=== PATIENT | female | born 1975 | race African-American/Black ===

== ENCOUNTER 2016-10-23 19:22 | Emergency (ER) | payer OTHER ==
[~2016-10-23] VITALS: Ht 162.6 cm; Wt 63.5 kg
[~2016-10-23 19:22] MED LIST: AMOXICILLIN; CLIN150C16 PO; DIAZ5TAB4 PO; FOLI1TAB16 PO; LEVO75TA PO; OXYC5CAP18 PO; SPIR50TA PO
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
[2016-10-23] MEDS ORDERED: ONDANSETRON 4 MG/2 ML VIAL IV ONE (20:15)
[2016-10-23] MEDS ORDERED: HYDROMORPHONE 1 MG/1 ML DISP.SYRIN IV ONE ×2 (20:15→21:30)
[2016-10-23 20:58] LABS: BASOPHILS # (AUTO) 0.1 K/uL (0.0-8.0); BASOPHILS % (AUTO) 1.3 % (0.0-2.0); EOSINOPHILS # (AUTO) 0.4 K/uL (0.0-0.7); EOSINOPHILS % (AUTO) 7.5 % (0.0-7.0); HEMATOCRIT 37.5 % (37-47); HEMOGLOBIN 11.8 G/DL (12.0-16.0); LYMPHOCYTES # (AUTO) 1.4 K/UL (0.8-4.8); LYMPHOCYTES % (AUTO) 27.6 % (20.5-51.5); MEAN CORPUSCULAR HEMOGLOBIN 24.9 UUG (27.0-31.0); MEAN CORPUSCULAR HGB CONC 32 g/dL (32.0-37.0); MEAN CORPUSCULAR VOLUME 78.9 FL (81.0-99.0); MONOCYTES # (AUTO) 0.5 K/UL (0.1-1.30); MONOCYTES % (AUTO) 10.2 % (0.0-11.0); NEUTROPHILS # (AUTO) 2.8 K/UL (1.8-8.9); NEUTROPHILS % (AUTO) 53.4 % (38.5-71.5); PLATELET COUNT (AUTO) 237 K/UL (150-450); RED BLOOD CELL COUNT(AUTO) 4.75 MIL/UL (4.2-5.4); WHITE BLOOD COUNT (AUTO) 5.2 K/UL (4.0-11.2)
[2016-10-23] MEDS ORDERED: ONDANSETRON 4 MG/2 ML VIAL ONE (20:59)
[2016-10-23] MEDS ORDERED: HYDROMORPHONE 2 MG/1 ML DISP.SYRIN ONE ×2 (20:59→22:03)
[2016-10-23 21:00] LABS: CREATININE 0.7 mg/dL (0.6-1.3); POTASSIUM 4.1 mmol/L (3.5-5.1)
[2016-10-23 21:06] LABS: BILIRUBIN,DIRECT 0.1 mg/dL (0.0-0.2); BILIRUBIN,TOTAL 0.2 mg/dL (0.2-1.0)
--- NOTE | 2016-10-23 21:47 | NUR ---
Pt back from [place].
[2016-10-23] MEDS ORDERED: IV NORMAL SALINE 1000 ML BAG IV ONE (22:45)
--- NOTE | 2016-10-23 23:08 | NUR ---
Removed IV intact, site okay, bandaged. Gave pt RX and d/c instructions, verbalized understanding. Pt calling [facility] for transport home.
== END 2016-10-23 23:11 | disposition home or self-care (01) ==
LOC: ER 19:23
DX: S39.012A Strain of muscle, fascia and tendon of lower back, initial encounter (principal); S16.1XXA Strain of muscle, fascia and tendon at neck level, initial encounter; R07.9 Chest pain, unspecified; E03.9 Hypothyroidism, unspecified; Z87.442 Personal history of urinary calculi; Z88.1 Allergy status to other antibiotic agents; Z88.6 Allergy status to analgesic agent; Z91.040 Latex allergy status; Z90.49 Acquired absence of other specified parts of digestive tract; G40.909 Epilepsy, unspecified, not intractable, without status epilepticus; W22.03XA Walked into furniture, initial encounter; Y93.89 Activity, other specified; Y92.9 Unspecified place or not applicable; Y99.9 Unspecified external cause status
CPT/HCPCS: 36415; 70030-TC; 70450; 71010; 72125; 72131; 84703; 85025; 85730; 93005; A4663; J1170; J2405; J7030

== ENCOUNTER 2025-01-25 06:36 | Emergency (ER) | payer OTHER ==
[~2025-01-25] VITALS: Ht 157.5 cm; Wt 74.8 kg
[~2025-01-25 06:36] MED LIST changes: +CLIN-118 PO; -CLIN150C16 PO; -FOLI1TAB16 PO; +FOLI1TAB94 PO; -OXYC5CAP18 PO; +OXYC5CAP22 PO
[2025-01-25] MEDS ORDERED: ONDANSETRON 4 MG/2 ML VIAL ONE (07:30)
[2025-01-25] MEDS ORDERED: FENTANYL CITRATE 100 MCG/2 ML AMPUL ONE (07:30)
[2025-01-25] MEDS ORDERED: KETOROLAC TROMETHAMINE 15 MG INJ ONE (07:30)
[2025-01-25 07:38] LABS: CREATININE 1.0 mg/dL (0.6-1.3); SODIUM SERUM 141 mmol/L (136-145); UREA NITROGEN, BLOOD 14 mg/dL (7-18)
[2025-01-25] MEDS: ONDANSETRON 4 MG/2 ML VIAL IV ONE (07:38)
[2025-01-25] MEDS: FENTANYL CITRATE 100 MCG/2 ML AMPUL IV ONE (07:38)
[2025-01-25] MEDS: KETOROLAC TROMETHAMINE 15 MG INJ IVP ONE (07:38)
[2025-01-25 07:42] LABS: PLATELET COUNT (AUTO) 460 K/uL (179-408); RED BLOOD CELL COUNT(AUTO) 4.92 MIL/uL (3.63-4.92); RED CELL DISTRIBUTION WIDTH 21.8 % (12.3-17.7); WHITE BLOOD COUNT (AUTO) 7.4 K/uL (3.8-11.8)
[2025-01-25 07:44] LABS: ASPARTATE AMINOTRANSFERASE 12 U/L (15-37); TOTAL PROTEIN, SERUM 8.3 g/dL (6.4-8.2)
[2025-01-25] MEDS: IV NORMAL SALINE 1000 ML BAG IV ONE (07:45)
[2025-01-25 07:54] LABS: *BLOOD, URINE 3+ (NEGATIVE); *CLARITY,URINE CLEAR (CLEAR); *COLOR,URINE YELLOW (YELLOW); *KETONES,URINE 1+ (NEGATIVE); *PROTEIN,URINE 2+ (NEGATIVE); *UROBILINOGEN,URINE 0.2 E.U./dl (NORMAL); LEUKOCYTE ESTERASE ,URINE 1+ (NEGATIVE); NITRITE, URINE NEGATIVE (NEGATIVE); UGLUCOSE NEGATIVE (NEGATIVE)
[2025-01-25 07:57] LABS: *BILIRUBIN,URIN 1+ (NEGATIVE)
[2025-01-25 07:58] LABS: *URINE HCG, QUAL NEGATIVE (NEGATIVE)
[2025-01-25 08:15] LABS: SQUAMOUS EPITHELIAL CELL,UR FEW /HPF (NONE SEEN)
[2025-01-25 08:30] VITALS: BP 129/80
[2025-01-25] MEDS ORDERED: CEFTRIAXONE /D5W 50ML IVPB **ER PYXIS IV ONE (09:03)
[2025-01-25] MEDS ORDERED: CEPH500C2 PO (09:25)
[2025-01-25] MEDS ORDERED: ONDA-243 PO (09:25)
[2025-01-25] MEDS ORDERED: IBUP600T51 PO (09:25)
[2025-01-25] MEDS ORDERED: TAMSULOSIN 0.4 MG PO (09:41)
[2025-01-25] MEDS ORDERED: TAMS0.4C PO (09:46)
[2025-01-25 10:03] VITALS: BP 129/80; TEMP 98; O2SAT 100
== END 2025-01-25 10:04 | disposition home or self-care (01) ==
LOC: ER 07:00
DX: N20.0 Calculus of kidney (principal); D50.9 Iron deficiency anemia, unspecified; E03.9 Hypothyroidism, unspecified; Z79.890 Hormone replacement therapy; Z79.899 Other long term (current) drug therapy; Z87.11 Personal history of peptic ulcer disease; Z88.1 Allergy status to other antibiotic agents; Z88.5 Allergy status to narcotic agent; Z90.49 Acquired absence of other specified parts of digestive tract; Z91.040 Latex allergy status
CPT/HCPCS: 36415; 76770; 83690; 84703; 85025; 87086; A4606; A4663; J0696; J1885; J2405; J3010; J7040

== ENCOUNTER 2025-02-14 01:33 | Emergency (ER) | payer OTHER ==
[~2025-02-14] VITALS: Ht 157.5 cm; Wt 81.6 kg
[~2025-02-14 01:33] MED LIST changes: -AMOXICILLIN; +CEPH500C2 PO; -CLIN-118 PO; -DIAZ5TAB4 PO; -FOLI1TAB94 PO; +IBUP600T51 PO; -LEVO75TA PO; +ONDA-243 PO; -OXYC5CAP22 PO; -SPIR50TA PO; +TAMS0.4C PO
[2025-02-14 01:44] VITALS: BP 136/94
[2025-02-14 02:14] LABS: PLATELET COUNT (AUTO) 521 K/uL (179-408); RED BLOOD CELL COUNT(AUTO) 4.70 MIL/uL (3.63-4.92); RED CELL DISTRIBUTION WIDTH 24.1 % (12.3-17.7); WHITE BLOOD COUNT (AUTO) 5.1 K/uL (3.8-11.8)
[2025-02-14] MEDS ORDERED: HYDROMORPHONE 1 MG/1 ML DISP.SYRIN ONE (02:14)
[2025-02-14] MEDS ORDERED: diphenhydrAMINE 50 MG/1 ML VIAL ONE (02:14)
[2025-02-14] MEDS ORDERED: ONDANSETRON 4 MG/2 ML VIAL ONE (02:14)
[2025-02-14] MEDS ORDERED: KETOROLAC TROMETHAMINE 15 MG INJ ONE (02:14)
[2025-02-14] MEDS: diphenhydrAMINE 50 MG/1 ML VIAL IV ONE (02:17)
[2025-02-14] MEDS: HYDROMORPHONE 1 MG/1 ML DISP.SYRIN IV ONE (02:17)
[2025-02-14] MEDS: ONDANSETRON 4 MG/2 ML VIAL IV ONE (02:17)
[2025-02-14] MEDS: KETOROLAC TROMETHAMINE 15 MG INJ IVP ONE (02:17)
[2025-02-14 02:18] LABS: CREATININE 1.0 mg/dL (0.6-1.3); SODIUM SERUM 139 mmol/L (136-145); UREA NITROGEN, BLOOD 16 mg/dL (7-18)
[2025-02-14 02:24] LABS: ASPARTATE AMINOTRANSFERASE 11 U/L (15-37); TOTAL PROTEIN, SERUM 7.8 g/dL (6.4-8.2)
[2025-02-14 02:32] LABS: *BILIRUBIN,URIN NEGATIVE (NEGATIVE); *BLOOD, URINE 3+ (NEGATIVE); *CLARITY,URINE CLEAR (CLEAR); *COLOR,URINE YELLOW (YELLOW); *KETONES,URINE TRACE (NEGATIVE); *PROTEIN,URINE 2+ (NEGATIVE); *UROBILINOGEN,URINE 1.0 E.U./dl (NORMAL); LEUKOCYTE ESTERASE ,URINE 1+ (NEGATIVE); NITRITE, URINE NEGATIVE (NEGATIVE); UGLUCOSE NEGATIVE (NEGATIVE)
[2025-02-14 02:33] LABS: PREGNANCY TEST SERUM QUAN 1 miul/L (0-6)
[2025-02-14 02:40] LABS: SQUAMOUS EPITHELIAL CELL,UR MODERATE /HPF (NONE SEEN)
[2025-02-14] MEDS ORDERED: OXYC-133 PO (02:56)
[2025-02-14 03:40] VITALS: BP 132/92; O2SAT 99
== END 2025-02-14 03:15 | disposition home or self-care (01) ==
LOC: ER 01:48
DX: R10.A2 Flank pain, left side (principal); D50.9 Iron deficiency anemia, unspecified; R10.20 Pelvic and perineal pain unspecified side; N20.0 Calculus of kidney; Z87.11 Personal history of peptic ulcer disease; Z87.442 Personal history of urinary calculi; Z88.1 Allergy status to other antibiotic agents; Z88.5 Allergy status to narcotic agent; Z90.49 Acquired absence of other specified parts of digestive tract; Z91.040 Latex allergy status
CPT/HCPCS: 99285; 96374; 96375; 76770; 80076; 80048; 81001; 83690; 85025; 87086; 84702; 36415; J1885; J1200; J2405; J1171; A4606; A4663